=== PATIENT | female | born 1950 | race African-American/Black ===

== ENCOUNTER 2020-04-11 10:10 | Emergency (ER) | payer MEDICAID, OTHER ==
[~2020-04-11] VITALS: Ht 165.1 cm; Wt 70.6 kg
[2020-04-11] MEDS: LORAZEPAM 2MG/ML CPJ IV ONE ×2 (10:46→15:28)
[2020-04-11 11:14] LABS: BASOPHILS % 0.5 % (0.0-2.0); EOSINOPHILS % 0.3 % (0.0-5.0); HEMATOCRIT. 23.9 % (36.0-48.0); HEMOGLOBIN. 8.6 g/dL (12.0-16.0); LYMPHOCYTES % 23.9 % (20.0-50.0); MEAN CORPUSCULAR HEMOGLOBIN 31.6 pg (28.0-32.0); MEAN CORPUSCULAR VOLUME 88.2 fL (81.0-99.0); MONOCYTES % 8.7 % (2.0-8.0); NEUTROPHILS % 66.6 % (40.0-76.0); RED BLOOD CELL COUNT 2.71 mill/uL (4.2-5.4)
[2020-04-11 11:21] LABS: PROTHROMBIN TIME 10.6 sec (9.6-11.0)
[2020-04-11 11:41] LABS: PLATELET ESTIMATE MARKEDLY DECREASED
[2020-04-11 11:45] LABS: PLATELET 10 x1000/uL (130-400)
[2020-04-11 12:54] LABS: CLARITY URINE CLOUDY (CLEAR); KETONES URINE 4+ (NEGATIVE); LEUKOCYTE ESTERASE URINE 3+ (NEGATIVE); NITRITE URINE POSITIVE (NEGATIVE); OCCULT BLOOD URINE 3+ (NEGATIVE); PROTEIN URINE 4+ (NEGATIVE); SPECIFIC GRAVITY URINE 1.082 (1.005-1.030)
[2020-04-11 12:59] LABS: COLOR URINE BLOODY (YELLOW)
[2020-04-11 13:09] LABS: CHLORIDE 107 mEq/L (98-107)
[2020-04-11 13:13] LABS: ETHANOL BLOOD < 10 mg/dL
[2020-04-11] MEDS: ONDANSETRON HCL 4MG/2ML INJ IV ONE (13:24)
[2020-04-11 13:36] LABS: *AMPHETAMINES SCREEN URINE NEGATIVE (NEGATIVE); *COCAINE SCREEN URINE NEGATIVE (NEGATIVE)
[2020-04-11 13:37] LABS: METHADONE URINE SCREEN NEGATIVE (NEGATIVE)
[2020-04-11 14:08] LABS: *BENZODIAZEPINES SCREEN URINE NEGATIVE (NEGATIVE); CANNABINOID URINE SCREEN NEGATIVE (NEGATIVE); OPIATES URINE SCREEN NEGATIVE (NEGATIVE); PHENCYCLIDINE URINE SCREEN NEGATIVE (NEGATIVE)
[2020-04-11] MEDS: PIPERACILLIN/TAZ 3.375G PREMIX 50 ML IV ONE (14:45)
[2020-04-11 15:54] LABS: HAPTOGLOBIN <31.0 mg/dL (30-200)
[2020-04-11] MEDS: VANCOMYCIN 1 G PREMIX 200 ML IV ONE (16:10)
[2020-04-11 17:27] LABS: *BARBITURATES SCREEN URINE NEGATIVE (NEGATIVE)
[2020-04-11 20:53] VITALS: BP 111/58
== END 2020-04-11 21:10 | disposition short-term general hospital (02) ==
LOC: ER 10:23 → EDBEDREQ 13:47 → EDBEDREQTM 13:47 → EDBEDREQ 16:31 → EDBEDREQSVC 16:31 → EDBEDREQTM 16:31 → CANRESERV 19:58 → ENRESERV 19:58 → CANBEDREQ 20:00 → ER 21:10
DX: I21.4 Non-ST elevation (NSTEMI) myocardial infarction (principal); D69.6 Thrombocytopenia, unspecified; R45.1 Restlessness and agitation; I10 Essential (primary) hypertension; G31.9 Degenerative disease of nervous system, unspecified
CPT/HCPCS: 36415; 70450; 71045; 74176; 80053; 80305; 80320; 81003; 82140; 82962; 83010; 83605; 83615; 83880; 84484; 85025; 85044; 85610; 86850; 86900; 86901; 87015; 87040; 87045; 87086; 87426; 87427; 87449; 93005; 96365; 96366; 96367; 96375; 96376; 99291; J2060; J2405; J2543; J3370; A4315; G0480